=== PATIENT | female | born 1940 | race Caucasian/White ===

== ENCOUNTER → 2020-09-29 | Day surgery (SDC) | payer OTHER ==
[~2020-09-29] VITALS: Ht 167.6 cm; Wt 52.2 kg
[~2020-09-29] MED LIST: EPINEPHrine HCL 1 MG/1 ML AMP ONE; GLIP5TAB12 PO; GLYCOPYRROLATE 0.2 MG/ML 1ML VIAL ONE; KETAMINE 50mg/ML 10ml Vial (500mg/10ml) IV ONE; LIDOCAINE 2%HCL (LOCAL ANESTH.) INJ 20ML MDV ONE; LIDOCAINE HCL 2% TOP JELLY 5ML TOP ONE; LINA5TAB PO; METF-370 PO; METO25TA93 PO; MIDAZOLAM HCL 1MG/1ML-2 ML VIAL ONE; MULTCAP45 PO; ONDANSETRON HCL 4 MG/2 ML VIAL IV PRN; ONDANSETRON HCL 4 MG/2 ML VIAL ONE; PROPOFOL 10 MG/ML 20 ML IV ONE; SODIUM CHLORIDE LOCK 0 ML ONE; THYR60TA PO; TIMO0.5S66 EACHEYE; [UNRECOGNIZED DRUG - CODE] PO
[2020-09-29 16:25] VITALS: BP 144/74
== END | disposition home or self-care (01) ==
LOC: GI 12:00
PROVIDERS: ATTEND Internal Medicine Pulmonary Disease
DX: J90 Pleural effusion, not elsewhere classified (principal); H40.89 Other specified glaucoma; E03.9 Hypothyroidism, unspecified; I10 Essential (primary) hypertension; E11.9 Type 2 diabetes mellitus without complications; J18.9 Pneumonia, unspecified organism; Z20.822 Contact with and (suspected) exposure to COVID-19; Z98.890 Other specified postprocedural states
CPT/HCPCS: 31622; 82962; 87070; 87077; 87186; 87205; J2250; J2405; J2704; U0003; J0171

== ENCOUNTER 2020-10-23 04:23 | Inpatient (IN) | payer OTHER ==
[~2020-10-23] VITALS: Ht 167.6 cm; Wt 55.3 kg
[~2020-10-23 04:23] MED LIST changes: -EPINEPHrine HCL 1 MG/1 ML AMP ONE; -GLYCOPYRROLATE 0.2 MG/ML 1ML VIAL ONE; -KETAMINE 50mg/ML 10ml Vial (500mg/10ml) IV ONE; -LIDOCAINE 2%HCL (LOCAL ANESTH.) INJ 20ML MDV ONE; -LIDOCAINE HCL 2% TOP JELLY 5ML TOP ONE; -MIDAZOLAM HCL 1MG/1ML-2 ML VIAL ONE; -ONDANSETRON HCL 4 MG/2 ML VIAL IV PRN; -ONDANSETRON HCL 4 MG/2 ML VIAL ONE; -PROPOFOL 10 MG/ML 20 ML IV ONE; -SODIUM CHLORIDE LOCK 0 ML ONE
[2020-10-23] MEDS ORDERED: SODIUM CHLORIDE 0.9% 1,000 ML IV ONE (05:00)
[2020-10-23] MEDS ORDERED: dilTIAZem 25 MG/5 ML VIAL IV ONE ×2 (05:30→06:45)
[2020-10-23 06:07] LABS: Basophils # (auto) 0.1 10 ^3/uL (0-0.2); Basophils % (auto) 0.3 % (0.0-2.0); Eosinophils # (auto) 0 10 ^3/uL (0-0.8); Hematocrit 32.3 % (36.0-46.0); Hemoglobin 10.7 g/dL (12.2-16.2); Lymphocytes # (auto) 0.4 10 ^3/uL (0.4-5.4); Lymphocytes % (auto) 1.8 % (10.0-50.0); Mean Corpuscular Hemoglobin 25.7 pg (28.0-32.0); Mean Corpuscular Hgb Conc. 33.1 g/dL (32.0-36.0); Mean Corpuscular Volume 77.6 fL (80.0-100.0); Monocytes # (auto) 1.1 10 ^3/uL (0-1.3); Monocytes % (auto) 5.6 % (0.0-12.0); Neutrophils # (auto) 18.1 10 ^3/uL (1.6-8.6); Neutrophils % (auto) 92.3 % (37.0-80.0); Platelet Count (auto) 314 10^3/uL (140-450); Red Blood Cells 4.16 10^6/uL (4.0-5.20); Red Cell Distribution Width 19.8 % (11.8-14.3); White Blood Cell 19.6 10^3/uL (4.4-10.8)
[2020-10-23 06:10] LABS: Calcium 7.5 mg/dL (8.5-10.1); Potassium 3.6 mmol/L (3.5-5.1)
[2020-10-23 06:19] LABS: Albumin 2.6 g/dL (3.4-5.0); BUN/Creatinine Ratio 29.4; Bilirubin, Total 1.1 mg/dL (0.2-1.0); Total Protein 6.6 g/dL (6.4-8.2)
[2020-10-23 06:29] LABS: INR 1.3 (0.9-1.15); Partial Thromboplastin Time 26.3 sec (23.0-31.2)
[2020-10-23] MEDS ORDERED: dilTIAZem 125mg/125ml BAG KIT 100 ML IV SCH (06:45)
[2020-10-23 11:38] LABS: Urine Bacteria FEW /hpf (None Seen); Urine Blood 3+ /uL (Negative); Urine Specific Gravity 1.015 (1.001-1.035); Urine WBC 5 /hpf (0 - 5)
[2020-10-23] MEDS ORDERED: NITROGLYCERIN 0.4 MG SL TAB SL PRN (12:15)
[2020-10-23] MEDS ORDERED: DEXTROSE (50%) 50ML SYRG IV PRN (12:15)
[2020-10-23] MEDS ORDERED: MORPHINE SULF INJ 2 MG/ML SYRINGE 1ML IV PRN (12:15)
[2020-10-23] MEDS ORDERED: METOPROLOL TARTRATE 25 MG TAB PO ONE (12:15)
[2020-10-23] MEDS ORDERED: ACETAMINOPHEN 500 MG TAB PO PRN (12:15)
[2020-10-23] MEDS ORDERED: ONDANSETRON HCL 4 MG/2 ML VIAL IV PRN (12:15)
[2020-10-23] MEDS ORDERED: HYDROcodone-ACET 5/325MG TAB PO PRN (12:15)
[2020-10-23] MEDS ORDERED: DIGOXIN (250MCG/ML) 2 ML AMPULE IV ONE (13:15)
[2020-10-23] MEDS: InsuLIN REG 1unit/0.01ml Soln (100units/ml) SC SCH ×2 (17:25→22:19)
[2020-10-23] MEDS: ACCU-CHEK COMFORT CURVE STRIP VI SCH ×2 (17:34→22:16)
[2020-10-23] MEDS: TIMOLOL MAL 0.5% OPTH(EYE) SOL 5ML EACHEYE SCH (18:00)
[2020-10-23 18:14] VITALS: BP 126/69
[2020-10-23 20:00] VITALS: BP 133/73
[2020-10-23 22:00] VITALS: BP 133/73
[2020-10-23] MEDS: METOPROLOL TARTRATE 25 MG TAB PO SCH (22:16)
[2020-10-24] VITALS (15 sets, daily range): BP systolic 67–133; BP diastolic 38–87
[2020-10-24] MEDS: glipiZIDE 5 MG TAB PO SCH (06:59)
[2020-10-24] MEDS: THYROID 60 MG TAB PO SCH (06:59)
[2020-10-24] MEDS: ACCU-CHEK COMFORT CURVE STRIP VI SCH ×4 (07:00→22:07)
[2020-10-24] MEDS: InsuLIN REG 1unit/0.01ml Soln (100units/ml) SC SCH ×4 (07:01→22:08)
[2020-10-24] MEDS ORDERED: AMIODARONE HCL 150 MG in D5W 5% 100 ML IV ONE (08:15)
[2020-10-24] MEDS: METOPROLOL TARTRATE 25 MG TAB PO SCH ×2 (09:26→22:07)
[2020-10-24] MEDS ORDERED: ENOXAPARIN SOD 30 MG/0.3 ML SYRINGE SC SCH (10:00)
[2020-10-24] MEDS ORDERED: VANCOMYCIN PER PHARMACY 0 MG IV SCH (10:15)
[2020-10-24] MEDS ORDERED: VANCOMYCIN 1GM/250ML 250 ML IV ONE (10:15)
[2020-10-24] MEDS ORDERED: cefTRIAXone 1GM/50ML D5W 50 ML IV ONE (10:15)
[2020-10-24] MEDS: TIMOLOL MAL 0.5% OPTH(EYE) SOL 5ML EACHEYE SCH (18:44)
[2020-10-25 05:00] VITALS: BP 116/58
[2020-10-25 06:08] LABS: Basophils # (auto) 0 10 ^3/uL (0-0.2); Basophils % (auto) 0.2 % (0.0-2.0); Eosinophils # (auto) 0 10 ^3/uL (0-0.8); Neutrophils % (auto) 83.2 % (37.0-80.0)
[2020-10-25 06:11] LABS: Eosinophils % (auto) 0.1 % (0.0-7.0); Hematocrit 34.3 % (36.0-46.0); Hemoglobin 11.3 g/dL (12.2-16.2); Lymphocytes # (auto) 0.6 10 ^3/uL (0.4-5.4); Lymphocytes % (auto) 4.1 % (10.0-50.0); Mean Corpuscular Hemoglobin 26.2 pg (28.0-32.0); Mean Corpuscular Volume 79.3 fL (80.0-100.0); Monocytes # (auto) 1.8 10 ^3/uL (0-1.3); Monocytes % (auto) 12.4 % (0.0-12.0); Neutrophils # (auto) 12.2 10 ^3/uL (1.6-8.6); Platelet Count (auto) 264 10^3/uL (140-450); Red Blood Cells 4.33 10^6/uL (4.0-5.20); Red Cell Distribution Width 18.9 % (11.8-14.3); White Blood Cell 14.6 10^3/uL (4.4-10.8)
[2020-10-25 06:35] LABS: Potassium 3.2 mmol/L (3.5-5.1)
[2020-10-25 06:42] LABS: BUN/Creatinine Ratio 31.2; Calcium 8.1 mg/dL (8.5-10.1)
[2020-10-25] MEDS: InsuLIN REG 1unit/0.01ml Soln (100units/ml) SC SCH ×4 (07:00→22:30)
[2020-10-25] MEDS: THYROID 60 MG TAB PO SCH (07:00)
[2020-10-25] MEDS: ACCU-CHEK COMFORT CURVE STRIP VI SCH ×4 (07:00→22:21)
[2020-10-25] MEDS: glipiZIDE 5 MG TAB PO SCH (07:00)
[2020-10-25] MEDS: METOPROLOL TARTRATE 25 MG TAB PO SCH ×2 (08:57→22:21)
[2020-10-25 09:00] VITALS: BP 96/53
[2020-10-25] MEDS ORDERED: DIGOXIN (250MCG/ML) 2 ML AMPULE IV ONE (09:00)
[2020-10-25] MEDS: cefTRIAXone 1GM/50ML D5W 50 ML IV SCH (09:14)
[2020-10-25] MEDS ORDERED: AMIODARONE HCL 150 MG in D5W 5% 100 ML IV ONE (10:45)
[2020-10-25] MEDS ORDERED: POTASSIUM CHLORIDE 40 MEQ, LIDOCAINE 1% (LOCAL ANESTH.) 4 ML in SODIUM CHL 0.9% 250 ML IV ONE (10:45)
[2020-10-25] MEDS ORDERED: AMIODARONE 450mg/250ml AE 250 ML IV SCH (10:45)
[2020-10-25 11:08] LABS: Albumin 2.2 g/dL (3.4-5.0); Bilirubin, Direct 0.4 mg/dL (0-0.2)
[2020-10-25 11:11] LABS: Bilirubin, Total 1.2 mg/dL (0.2-1.0); Total Protein 6.6 g/dL (6.4-8.2)
[2020-10-25] MEDS: VANCOMYCIN 750mg/250ml 250 ML IV SCH (12:24)
[2020-10-25 13:00] VITALS: BP 113/68
[2020-10-25] MEDS: APIXABAN 2.5 MG TAB PO SCH ×2 (14:38→22:20)
[2020-10-25 16:42] VITALS: BP 110/52
[2020-10-25] MEDS: AMIODARONE 450mg/250ml AE 250 ML IV SCH (17:40)
[2020-10-25] MEDS ORDERED: NITROGLYCERIN 2% OINT 1GM PKG TD ONE (18:15)
[2020-10-25] MEDS: TIMOLOL MAL 0.5% OPTH(EYE) SOL 5ML EACHEYE SCH (18:27)
[2020-10-25 20:15] VITALS: BP 129/65
[2020-10-25 22:00] VITALS: BP 129/65
[2020-10-26 05:23] VITALS: BP 118/55
[2020-10-26] MEDS: THYROID 60 MG TAB PO SCH (06:33)
[2020-10-26] MEDS: InsuLIN REG 1unit/0.01ml Soln (100units/ml) SC SCH ×4 (06:33→22:07)
[2020-10-26] MEDS: glipiZIDE 5 MG TAB PO SCH (06:33)
[2020-10-26] MEDS: ACCU-CHEK COMFORT CURVE STRIP VI SCH ×4 (06:34→21:56)
[2020-10-26 08:42] VITALS: BP 115/63
[2020-10-26 09:12] LABS: Basophils # (auto) 0.1 10 ^3/uL (0-0.2); Eosinophils # (auto) 0.1 10 ^3/uL (0-0.8); Mean Corpuscular Hemoglobin 25.3 pg (28.0-32.0); Monocytes # (auto) 1.6 10 ^3/uL (0-1.3); Monocytes % (auto) 9.6 % (0.0-12.0)
[2020-10-26 09:13] LABS: Basophils % (auto) 0.4 % (0.0-2.0); Eosinophils % (auto) 0.4 % (0.0-7.0); Hematocrit 34.5 % (36.0-46.0); Hemoglobin 11.1 g/dL (12.2-16.2); Lymphocytes # (auto) 0.8 10 ^3/uL (0.4-5.4); Lymphocytes % (auto) 4.8 % (10.0-50.0); Mean Corpuscular Hgb Conc. 32.3 g/dL (32.0-36.0); Mean Corpuscular Volume 78.3 fL (80.0-100.0); Neutrophils # (auto) 14.3 10 ^3/uL (1.6-8.6); Neutrophils % (auto) 84.8 % (37.0-80.0); Platelet Count (auto) 344 10^3/uL (140-450); Red Blood Cells 4.41 10^6/uL (4.0-5.20); Red Cell Distribution Width 18.5 % (11.8-14.3); White Blood Cell 16.9 10^3/uL (4.4-10.8)
[2020-10-26 09:32] LABS: Albumin 2.3 g/dL (3.4-5.0); BUN/Creatinine Ratio 25.5; Calcium 8.1 mg/dL (8.5-10.1); Potassium 3.9 mmol/L (3.5-5.1)
[2020-10-26 09:34] LABS: Bilirubin, Total 1.3 mg/dL (0.2-1.0); Total Protein 6.6 g/dL (6.4-8.2)
[2020-10-26] MEDS: cefTRIAXone 1GM/50ML D5W 50 ML IV SCH (10:16)
[2020-10-26] MEDS: AMIODARONE 450mg/250ml AE 250 ML IV SCH (10:16)
[2020-10-26] MEDS: APIXABAN 2.5 MG TAB PO SCH ×2 (10:17→22:04)
[2020-10-26] MEDS: METOPROLOL TARTRATE 25 MG TAB PO SCH ×2 (10:17→22:04)
[2020-10-26] MEDS: VANCOMYCIN 750mg/250ml 250 ML IV SCH (11:50)
[2020-10-26] MEDS ORDERED: AMIODARONE HCL 200 MG TAB PO ONE (12:00)
[2020-10-26 13:00] VITALS: BP 105/59
[2020-10-26 17:00] VITALS: BP 99/46
[2020-10-26] MEDS: TIMOLOL MAL 0.5% OPTH(EYE) SOL 5ML EACHEYE SCH (18:00)
[2020-10-26 22:00] VITALS: BP 110/54
[2020-10-26] MEDS: AMIODARONE HCL 200 MG TAB PO SCH (22:04)
[2020-10-27 05:49] VITALS: BP 114/92
[2020-10-27 05:55] LABS: Basophils # (auto) 0.1 10 ^3/uL (0-0.2); Basophils % (auto) 0.5 % (0.0-2.0); Eosinophils # (auto) 0.1 10 ^3/uL (0-0.8); Eosinophils % (auto) 0.5 % (0.0-7.0); Hematocrit 31.1 % (36.0-46.0); Hemoglobin 10.3 g/dL (12.2-16.2); Lymphocytes # (auto) 0.7 10 ^3/uL (0.4-5.4); Lymphocytes % (auto) 4.7 % (10.0-50.0); Mean Corpuscular Hemoglobin 25.7 pg (28.0-32.0); Mean Corpuscular Hgb Conc. 33.3 g/dL (32.0-36.0); Mean Corpuscular Volume 77.2 fL (80.0-100.0); Monocytes # (auto) 1.4 10 ^3/uL (0-1.3); Monocytes % (auto) 9.8 % (0.0-12.0); Neutrophils # (auto) 12.3 10 ^3/uL (1.6-8.6); Neutrophils % (auto) 84.5 % (37.0-80.0); Nucleated Red Blood Cells % 0.1 %; Platelet Count (auto) 340 10^3/uL (140-450); Red Blood Cells 4.03 10^6/uL (4.0-5.20); Red Cell Distribution Width 18.1 % (11.8-14.3); White Blood Cell 14.6 10^3/uL (4.4-10.8)
[2020-10-27] MEDS: THYROID 60 MG TAB PO SCH (06:45)
[2020-10-27] MEDS: glipiZIDE 5 MG TAB PO SCH (06:45)
[2020-10-27] MEDS: ACCU-CHEK COMFORT CURVE STRIP VI SCH ×3 (06:46→17:00)
[2020-10-27] MEDS: InsuLIN REG 1unit/0.01ml Soln (100units/ml) SC SCH ×3 (06:47→17:00)
[2020-10-27 09:00] VITALS: BP 94/53
[2020-10-27] MEDS: cefTRIAXone 1GM/50ML D5W 50 ML IV SCH (09:55)
[2020-10-27] MEDS: APIXABAN 2.5 MG TAB PO SCH (09:59)
[2020-10-27] MEDS: AMIODARONE HCL 200 MG TAB PO SCH (09:59)
[2020-10-27] MEDS: METOPROLOL TARTRATE 25 MG TAB PO SCH (10:00)
[2020-10-27] MEDS ORDERED: DOXY-332 PO (10:02)
[2020-10-27] MEDS ORDERED: MET25T PO (10:02)
[2020-10-27] MEDS ORDERED: AMIO200T4 PO (10:02)
[2020-10-27] MEDS ORDERED: APIX2.5T PO (10:02)
[2020-10-27] MEDS: VANCOMYCIN 750mg/250ml 250 ML IV SCH (12:00)
[2020-10-27 12:44] VITALS: BP 115/73
[2020-10-27] MEDS ORDERED: EPINEPHrine HCL 1 MG/1 ML AMP ONE (15:03)
[2020-10-27] MEDS ORDERED: SUCCINYLCHOLINE CHLORIDE 20 MG/ML 10ML VIAL IV ONE (15:07)
[2020-10-27] MEDS ORDERED: MIDAZOLAM DRIP 50 mg/50mL 50 ML IV ONE (15:07)
[2020-10-27] MEDS ORDERED: ETOMIDATE (2MG/ML) 20ML VIAL IV ONE (15:07)
[2020-10-27 16:01] VITALS: BP 115/73
[2020-10-27] MEDS: TIMOLOL MAL 0.5% OPTH(EYE) SOL 5ML EACHEYE SCH (18:26)
== END 2020-10-27 18:15 | disposition home or self-care (01) | DRG 308 ==
LOC: ER 04:23 → EDBD 04:23 → TELE 12:15 → TELE-EAST 17:49
PROVIDERS: ADMIT Hospitalist; ATTEND Hospitalist
PROC: 0W993ZZ Drainage of Right Pleural Cavity, Percutaneous Approach (ICD-10-PCS; principal; 2020-10-24)
DX: I48.91 Unspecified atrial fibrillation (principal); J96.00 Acute respiratory failure, unspecified whether with hypoxia or hypercapnia; E43 Unspecified severe protein-calorie malnutrition; J90 Pleural effusion, not elsewhere classified; Z68.1 Body mass index [BMI] 19.9 or less, adult; N17.9 Acute kidney failure, unspecified; E11.65 Type 2 diabetes mellitus with hyperglycemia; E11.22 Type 2 diabetes mellitus with diabetic chronic kidney disease; N18.9 Chronic kidney disease, unspecified; H40.9 Unspecified glaucoma; Z20.822 Contact with and (suspected) exposure to COVID-19; Z82.49 Family history of ischemic heart disease and other diseases of the circulatory system; Z86.73 Personal history of transient ischemic attack (TIA), and cerebral infarction without residual deficits; I12.9 Hypertensive chronic kidney disease with stage 1 through stage 4 chronic kidney disease, or unspecified chronic kidney disease
CPT/HCPCS: 36415; 70450; 71045; 71250; 72192; 73030; 73060; 76942; 80048; 80053; 80076; 80202; 81001; 82565; 82962; 83735; 83880; 83986; 84439; 84443; 84484; 85025; 85610; 85652; 85730; 86141; 87205; 87426; 89051; 93005; 93306; 96361; 96365; G0378; J0171; J0330; J0696; J1815; J2001; J2250; J7060